=== PATIENT | male | born 1975 | race Two or more races ===

== ENCOUNTER 2018-07-12 13:46 | Emergency (ER) | payer SELFPAY ==
[~2018-07-12] VITALS: Ht 172.7 cm; Wt 81.6 kg
[2018-07-12] MEDS ORDERED: NKM (13:59)
--- NOTE | 2018-07-12 14:21 | Emergency Room Report ---
History of Present Illness General Chief Complaint: Laceration Source: Patient Present Illness HPI 43-year-old male patient presents the ER complaining of laceration on his left wrist. Reports sustained a laceration earlier today when he was working on his car. Reports a screw in the car cut his skin. Reports bleeding well controlled at this time with gauze. States he does not know his tetanus vaccination status. Reports he is right-hand dominant. Denies numbness or tingling in his left hand. Denies fever, chest pain, shortness of breath. Allergies: Coded Allergies: No Known Allergies (Unverified , 07/12/18) Patient History Past Medical History: see triage record Reviewed Nursing Documentation: PMH: Agreed; PSxH: Agreed Nursing Documentation-PMH Past Medical History: No History, Except For Hx Cardiac Problems: No Hx Hypertension: Yes Hx Pacemaker: No Hx Asthma: No Hx COPD: No Hx Diabetes: Yes Hx Cancer: No Hx Gastrointestinal Problems: No Hx Dialysis: No History Of Psychiatric Problem: No Hx Neurological Problems: No Hx Cerebrovascular Accident: No Hx Seizures: No Review of Systems All Other Systems: negative except mentioned in HPI Physical Exam Vital Signs Date Time Temp Pulse Resp B/P (MAP) Pulse Ox O2 Delivery O2 Flow Rate FiO2 07/12/18 13:55 99.0 86 14 157/91 94 Sp02 EP Interpretation: reviewed, normal General Appearance: well appearing, no apparent distress, alert, GCS 15, non- toxic Head: normocephalic, atraumatic Eyes: bilateral eye normal inspection, bilateral eye PERRL ENT: hearing grossly normal, normal pharynx, no angioedema, normal voice, uvula midline, moist mucus membranes Neck: full range of motion Respiratory: lungs clear, normal breath sounds, no rhonchi, no respiratory distress, no accessory muscle use, no wheezing, speaking full sentences Cardiovascular #1: regular rate, rhythm, no edema Cardiovascular #2: 2+ radial (R), 2+ radial (L) Musculoskeletal: back normal, digits/nails normal, gait/station normal, normal range of motion, non-tender, other - NVI, cap refill <seconds Neurologic: alert, oriented x3, responsive, motor strength/tone normal, sensory intact Psychiatric: mood/affect normal Skin: laceration - 1-2 cm laceration on left forearm, deep, linear, bleeding well controlled, no loss of range of motion, exposed tendon however no tendon injury noted Procedures Laceration/Wound Repair Laceration/Wound Repair : Consent: Verbal Wound Location: upper extremity Wound's Depth, Shape: superficial, into muscle Wound Length (cm): 2 Wound Explored: contaminated Irrigated w/ Saline (ccs): 10 Betadine Prep?: Yes Anesthesia: Lidocaine w/ Epi Volume Anesthetic (ccs): 2 Wound Debrided: extensive Wound Repaired With: sutures Suture Size/Type: 4:0 Number of Sutures: 6 Layer Closure?: Yes Deep Layer Suture Size/Type: 3:0 Number Deep Layer Sutures: 2 Sterile Dressing Applied?: Yes Splint Applied?: No Sling Applied?: No Patient Tolerated: Well Complications: None Medical Decision Making PA Attestation Dr. Vázquez is my supervising Physician whom patient management has been discussed with. Diagnostic Impression: Primary Impression: Laceration ER Course Pt presents to ED c/o laceration on left forearm. DDX considered but are not limited to laceration, abrasion, contusion, cellulitis, retained FB, fracture. VITAL SIGNS are WNL, patient is afebrile ED INTERVENTIONS: Wound was cleaned and irrigated using copious normal saline. Local block using Lidocaine with epi. TDAP provided. Pain medication provided. Laceration repaired. See procedure note. X-ray negative for acute disease of the left forearm per the preliminary reading. 6 superficial and 2 deep sutures placed. Wound cleaned and covered using sterile dressing and Bacitracin. Patient reports understanding and agreement to treatment plan. Keep wound clean and dry. Followup with PCP in 2-3 days for wound check and suture removal in 7-10 days. ER precautions given. DISCHARGE: Rx provided for Keflex Rx provided for Bacitracin Rx provided for Tylenol At this time pt is stable for d/c to home. Patient resting comfortably, in no acute distress, nontoxic appearing, talking without difficulty. Will provide with patient care instructions and any necessary prescriptions. Patient to take medication as instructed. Care plan and follow-up instructions provided. Work note provided to patient. Patient questions asked and answered. Patient instructed to follow-up with primary care provider for wound check and suture removal. ER precautions given. Patient instructed to return to ER immediately for any new or worsening of symptoms. - Please note that this Emergency Department Report was dictated using [employer] software, occasionally this can lead to erroneous entry secondary to interpretation by the dictation equipment. Other X-Ray Diagnostic Results Other X-Ray Diagnostic Results : X-Ray ordered: Left forearm # of Views/Limited Vs Complete: 2 View Indication: Pain EP Interpretation: Yes PA Xray: Interpretation reviewed, by supervising MD, and agrees with findings. Interpretation: no dislocation, no soft tissue swelling, no fractures Impression: No acute disease ESPINOZA Scribjoycelyn Text Dominic Michael PA-Hilary Last Vital Signs Date Time Temp Pulse Resp B/P (MAP) Pulse Ox O2 Delivery O2 Flow Rate FiO2 07/12/18 13:55 99.0 86 14 157/91 94 Status: improved Disposition: HOME, SELF-CARE Condition: Stable Scripts Acetaminophen* (TYLENOL EXTRA STRENGTH*) 500 Mg Tablet 500 MG ORAL Q8H PRN for Prn Headache/Temp > 101, #30 TAB 0 Refills Prov: Philip Michael 07/12/18 Cephalexin* (KEFLEX*) 500 Mg Capsule 500 MG ORAL EVERY 12 HOURS, #14 CAP 0 Refills Prov: Philip Michael 07/12/18 Bacitracin/Polymyxin B Sulfate (BACITRACIN-POLYMYXIN OINTMENT) 28.35 Gm Oint...g. 1 APPLIC TP BID, #28 GM Prov: Philip Michael 07/12/18 Patient Instructions: Laceration Care, Adult Additional Instructions: Patient instructed to follow-up with primary care provider in 2-3 days for wound check Suture removal in 7-10 days. Take medications as directed. Keep wound clean and dry. Patient questions asked and answered. ER precautions given, patient instructed to return to ER immediately for any new or worsening of symptoms. Philip Michael Jul 12, 2018 14:21
[2018-07-12] MEDS ORDERED: Ketorolac 30mg Inj IM ONE (14:30)
[2018-07-12] MEDS ORDERED: Tetanus/Diptheria/Pertussis Vaccine 0.5ml Syr IM ONE (14:30)
[2018-07-12] MEDS ORDERED: Bacitracin Oint UD TOPIC ONE (14:30)
[2018-07-12] MEDS ORDERED: Lidocaine 1% 10mg/ml/Epi 0.005mg/ml 30ml vial INJ ONE (14:30)
[2018-07-12 14:53] VITALS: BP 157/91
--- NOTE | 2018-07-12 16:00 | Diagnostic Imaging Report ---
Indication: Pain Forearm pain Findings: 2 views of the left forearm were obtained. No acute fractures, malalignment, erosions or periostitis are identified. Bone mineralization is within normal limits. Soft tissues are unremarkable. Impression: Negative for acute injury.
[2018-07-12] MEDS ORDERED: BACITRACIN-P28.35 GM TP (16:17)
[2018-07-12] MEDS ORDERED: CEPHALEXIN500 MG ORAL (16:17)
[2018-07-12] MEDS ORDERED: TYLENOL EXTRA500 MG ORAL (16:17)
[2018-07-12 16:50] VITALS: BP 151/87
== END 2018-07-12 16:30 | disposition home or self-care (01) ==
LOC: EMR 14:30
DX: S61.512A Laceration without foreign body of left wrist, initial encounter (principal); W45.8XXA Other foreign body or object entering through skin, initial encounter; Y93.89 Activity, other specified; Y92.89 Other specified places as the place of occurrence of the external cause; E11.9 Type 2 diabetes mellitus without complications; I10 Essential (primary) hypertension; F17.200 Nicotine dependence, unspecified, uncomplicated; Z23 Encounter for immunization
CPT/HCPCS: 12041; 73090; 90471; 90715; 96372; 96374; 99283; J1885

== ENCOUNTER 2018-07-15 10:37 | Emergency (ER) | payer SELFPAY ==
[~2018-07-15] VITALS: Ht 157.5 cm; Wt 81.6 kg
[~2018-07-15 10:37] MED LIST: BACITRACIN-P28.35 GM TP; CEPHALEXIN500 MG ORAL; NKM; TYLENOL EXTRA500 MG ORAL
[2018-07-15 10:42] VITALS: BP 160/85
[2018-07-15] MEDS ORDERED: CEPHALEXIN500 MG ORAL (11:25)
--- NOTE | 2018-07-15 11:25 | Emergency Room Report ---
History of Present Illness General Chief Complaint: Wound Recheck/Suture Removal Source: Patient, Medical Record Present Illness HPI The patient is here for a wound check. He underwent sutures 2 days ago and was double checking that there was no infection. He otherwise has no complaints. He does not have a primary care physician. Allergies: Coded Allergies: No Known Allergies (Unverified , 07/12/18) Patient History Past Medical History: none, DM, HTN Social History: Denies: smoking, alcohol use, drug use Reviewed Nursing Documentation: PMH: Agreed; PSxH: Agreed Nursing Documentation-PMH Past Medical History: No History, Except For Hx Cardiac Problems: No Hx Hypertension: Yes Hx Pacemaker: No Hx Asthma: No Hx COPD: No Hx Diabetes: Yes Hx Cancer: No Hx Gastrointestinal Problems: No Hx Dialysis: No Hx Neurological Problems: No Hx Cerebrovascular Accident: No Hx Seizures: No Review of Systems All Other Systems: negative except mentioned in HPI Physical Exam Vital Signs Date Time Temp Pulse Resp B/P (MAP) Pulse Ox O2 Delivery O2 Flow Rate FiO2 07/15/18 10:42 98.1 71 18 160/85 98 Room Air Sp02 EP Interpretation: reviewed, normal General Appearance: no apparent distress, alert, GCS 15, non-toxic Head: normocephalic, atraumatic Eyes: bilateral eye normal inspection, bilateral eye PERRL ENT: hearing grossly normal, normal pharynx, no angioedema, normal voice Respiratory: no respiratory distress, no retraction, no accessory muscle use, speaking full sentences Rectal: deferred Musculoskeletal: gait/station normal Neurologic: alert, oriented x3, responsive, motor strength/tone normal, sensory intact, speech normal Psychiatric: judgement/insight normal, memory normal, mood/affect normal, no suicidal/homicidal ideation Skin: normal color, no rash, warm/dry, well hydrated, other - L. forearm suture in place. slight erythema along sutures. Medical Decision Making Diagnostic Impression: Primary Impression: Encounter for wound re-check ER Course The wound does appear to be healing well. There is slight erythema that could be a local reaction to the sutures versus the very early signs of infection. As a precaution, I will go ahead and give a course of antibiotics. The patient is given wound care precautions and follow-up instructions. Please note that this Emergency Department Report was dictated using [employer] associate technology software, occasionally this can lead to erroneous entry secondary to interpretation by the dictation equipment. Last Vital Signs Date Time Temp Pulse Resp B/P (MAP) Pulse Ox O2 Delivery O2 Flow Rate FiO2 07/15/18 10:42 98.1 71 18 160/85 98 Room Air Status: improved Disposition: HOME, SELF-CARE Condition: Improved Scripts Cephalexin* (KEFLEX*) 500 Mg Capsule 500 MG ORAL EVERY 12 HOURS, #14 CAP 0 Refills Prov: Brisa Vázquez DO 07/15/18 Patient Instructions: Wound Check Brisa Vázquez DO Jul 15, 2018 11:25
[2018-07-15 11:46] VITALS: BP 146/88
== END 2018-07-15 12:00 | disposition home or self-care (01) ==
LOC: EMR 11:19
DX: Z48.01 Encounter for change or removal of surgical wound dressing (principal); I10 Essential (primary) hypertension; E11.9 Type 2 diabetes mellitus without complications
CPT/HCPCS: 99282